=== PATIENT | female | born 1970 | race Caucasian/White ===

== ENCOUNTER 2023-06-18 06:59 | Inpatient (IN) ==
[2023-06-07 15:04] LABS: Basophils # (Auto) 0.05 K/mcL (0.00-0.30); Basophils % (Auto) 0.9 % (0.0-2.0); Eosinophils # (Auto) 0.16 K/mcL (0.00-0.70); Eosinophils % (Auto) 2.8 % (0.0-7.0); Hematocrit 42.3 % (34.1-44.9); Hemoglobin 13.6 g/dL (11.2-15.7); Lymphocytes # (Auto) 1.68 K/mcL (1.50-4.80); Lymphocytes % (Auto) 29.3 % (15.5-49.0); Mean Cell Volume 94.6 fL (80.0-100.0); Mean Corpuscular HGB Conc 32.2 g/dL (31.0-36.0); Mean Platelet Volume 9.1 fL (8.8-12.5); Neutrophils % (Auto) 59.8 % (38.0-78.0); Platelet Count 354 K/mcL (140-440); RBC 4.47 M/mcL (3.59-5.38); Red Cell Distribution Width 13.3 % (11.5-14.5); WBC 5.7 K/mcL (4.5-11.0)
[2023-06-07 15:29] LABS: ALT/SGPT 18 U/L (<40); AST/SGOT 26 U/L (<32); Albumin 4.3 gm/dL (3.2-5.2); Albumin/Globulin Ratio 1.3 (1.0-2.3); Alkaline Phosphatase 89 U/L (39-117); Bilirubin,Total 0.2 mg/dL (0.1-1.0); Blood Urea Nitrogen 12 mg/dL (6-20); Calcium 9.5 mg/dL (8.6-10.4); Carbon Dioxide 25 mmol/L (22-30); Chloride 103 mmol/L (96-108); Globulin 3.4 gm/dL (2.2-3.7); Glomerular Filtration Rate 83; Glucose 101 mg/dL (70-105)
[2023-06-07 17:06] LABS: INR 0.9 (0.9-1.1); Partial Thromboplastin Time 25.2 sec (20.0-37.0); Prothrombin Time 12.8 sec (11.9-14.5)
[~2023-06-18 06:59] MED LIST: 0.9 % SODIUM CHLORIDE 250 ML IV SCH
[2023-06-18] MEDS ORDERED: IPRATROPIUM/ALBUTEROL 3 ML AMPUL.NEB NEB PRN ×3 (07:00→14:19)
[2023-06-18] MEDS: SCOPOLAMINE 1 PATCH PATCH TOPICAL PRN (07:30)
[2023-06-18] MEDS ORDERED: ROCURONIUM 10 MG/ML ML IV ONE ×2 (10:05→14:22)
[2023-06-18] MEDS ORDERED: LIDOCAINE 2% PF 5 ML VIAL ONE (10:05)
[2023-06-18] MEDS ORDERED: PROPOFOL 200 MG/20 ML VIAL IV ONE ×2 (10:05→11:37)
[2023-06-18] MEDS: CIPROFLOXACIN 400 MG/200 ML BAG IV SCH ×2 (10:45→22:39)
[2023-06-18] MEDS ORDERED: fentaNYL 100 MCG/2 ML VIAL ONE ×3 (11:05→13:16)
[2023-06-18] MEDS ORDERED: MIDAZOLAM 2 MG/2 ML VIAL ONE (11:05)
[2023-06-18] MEDS: metroNIDAZOLE 500 MG/100 ML BAG IV SCH ×2 (11:15→17:07)
[2023-06-18] MEDS ORDERED: ePHEDrine 50 MG/5 ML SYRINGE (ANEST) IV ONE (11:37)
[2023-06-18] MEDS ORDERED: ONDANSETRON 4 MG/2 ML VIAL ONE (11:58)
[2023-06-18] MEDS ORDERED: DEXAMETHASONE 10 MG/ML VIAL ONE (11:58)
[2023-06-18] MEDS ORDERED: ONDANSETRON 4 MG/2 ML VIAL IV PRN ×2 (14:11→14:19)
[2023-06-18] MEDS ORDERED: fentaNYL 100 MCG/2 ML VIAL IV PRN ×2 (14:11→14:19)
[2023-06-18] MEDS ORDERED: SUGAMMADEX SODIUM 200 MG/2 ML VIAL IV ONE (14:13)
[2023-06-18] MEDS ORDERED: BENZOCAINE/MENTHOL 1 LOZENGE PO PRN (14:19)
[2023-06-18] MEDS ORDERED: LORazepam 2 MG/ML VIAL IV PRN (15:09)
[2023-06-18] MEDS: KETOROLAC 30 MG/ML VIAL IV PRN (15:32)
[2023-06-18] MEDS: fentaNYL 100 MCG/2 ML VIAL IV PRN (16:05)
[2023-06-18] MEDS: 0.9 % SODIUM CHLORIDE 250 ML IV SCH ×2 (16:53)
[2023-06-18] MEDS: METHOCARBAMOL 1,000 MG/10 ML VIAL IV SCH (17:07)
[2023-06-18] MEDS: METOCLOPRAMIDE 10 MG/2 ML VIAL IV SCH (17:07)
[2023-06-18] MEDS: ACETAMINOPHEN 1,000 MG/100 ML BAG IV SCH (20:33)
[2023-06-19] MEDS: 0.9 % SODIUM CHLORIDE 1,000 ML IV SCH (03:49)
[2023-06-19 06:08] LABS: Basophils # (Auto) 0.04 K/mcL (0.00-0.30); Basophils % (Auto) 0.4 % (0.0-2.0); Eosinophils # (Auto) 0.03 K/mcL (0.00-0.70); Eosinophils % (Auto) 0.3 % (0.0-7.0); Hemoglobin 12.4 g/dL (11.2-15.7); Lymphocytes # (Auto) 0.78 K/mcL (1.50-4.80); Lymphocytes % (Auto) 7.4 % (15.5-49.0); Mean Cell Volume 96.1 fL (80.0-100.0); Mean Corpuscular HGB Conc 31.8 g/dL (31.0-36.0); Mean Platelet Volume 9.2 fL (8.8-12.5); Monocytes # (Auto) 0.76 K/mcL (0.10-0.90); Monocytes % (Auto) 7.2 % (1.0-12.0); Neutrophils % (Auto) 84.6 % (38.0-78.0); Platelet Count 309 K/mcL (140-440); RBC 4.06 M/mcL (3.59-5.38); Red Cell Distribution Width 13.2 % (11.5-14.5); WBC 10.5 K/mcL (4.5-11.0)
[2023-06-19 06:25] LABS: ALT/SGPT 8 U/L (<40); AST/SGOT 21 U/L (<32); Albumin 3.3 gm/dL (3.2-5.2); Albumin/Globulin Ratio 1.2 (1.0-2.3); Alkaline Phosphatase 67 U/L (39-117); Bilirubin,Direct < 0.2 mg/dL (0-0.3); Bilirubin,Total 0.4 mg/dL (0.1-1.0); Blood Urea Nitrogen 15 mg/dL (6-20); Calcium 8.6 mg/dL (8.6-10.4); Carbon Dioxide 24 mmol/L (22-30); Chloride 103 mmol/L (96-108); Globulin 2.7 gm/dL (2.2-3.7); Glomerular Filtration Rate 72; Glucose 141 mg/dL (70-105); Lactate Dehydrogenase 173 U/L (135-225); Phosphorous 4.2 mg/dL (2.5-4.5); Triglycerides 68 mg/dL (<150); Uric Acid 6.8 mg/dL (2.5-8.0)
[2023-06-20 06:05] LABS: Basophils # (Auto) 0.02 K/mcL (0.00-0.30); Basophils % (Auto) 0.2 % (0.0-2.0); Eosinophils # (Auto) 0.34 K/mcL (0.00-0.70); Eosinophils % (Auto) 3.3 % (0.0-7.0); Hematocrit 35.4 % (34.1-44.9); Hemoglobin 11.3 g/dL (11.2-15.7); Lymphocytes % (Auto) 7.7 % (15.5-49.0); Mean Cell Volume 97.8 fL (80.0-100.0); Mean Corpuscular HGB Conc 31.9 g/dL (31.0-36.0); Mean Platelet Volume 9.1 fL (8.8-12.5); Monocytes # (Auto) 0.72 K/mcL (0.10-0.90); Monocytes % (Auto) 6.9 % (1.0-12.0); Neutrophils % (Auto) 81.7 % (38.0-78.0); Platelet Count 251 K/mcL (140-440); RBC 3.62 M/mcL (3.59-5.38); Red Cell Distribution Width 13.3 % (11.5-14.5); WBC 10.4 K/mcL (4.5-11.0)
[2023-06-20 06:24] LABS: ALT/SGPT 6 U/L (<40); AST/SGOT 15 U/L (<32); Albumin 3.1 gm/dL (3.2-5.2); Albumin/Globulin Ratio 1.1 (1.0-2.3); Alkaline Phosphatase 59 U/L (39-117); Bilirubin,Direct < 0.2 mg/dL (0-0.3); Bilirubin,Total 0.3 mg/dL (0.1-1.0); Blood Urea Nitrogen 9 mg/dL (6-20); Calcium 8.3 mg/dL (8.6-10.4); Carbon Dioxide 24 mmol/L (22-30); Chloride 108 mmol/L (96-108); Globulin 2.8 gm/dL (2.2-3.7); Glomerular Filtration Rate 102; Glucose 121 mg/dL (70-105); Lactate Dehydrogenase 152 U/L (135-225); Phosphorous 1.7 mg/dL (2.5-4.5); Triglycerides 49 mg/dL (<150); Uric Acid 5.3 mg/dL (2.5-8.0)
[2023-06-20] MEDS: ENOXAPARIN 40 MG/0.4 ML SYRINGE SQ SCH (09:02)
[2023-06-20] MEDS: ONDANSETRON 4 MG/2 ML VIAL IV PRN (13:32)
[2023-06-21 06:31] LABS: Basophils # (Auto) 0.05 K/mcL (0.00-0.30); Basophils % (Auto) 0.6 % (0.0-2.0); Eosinophils # (Auto) 0.45 K/mcL (0.00-0.70); Hematocrit 32.3 % (34.1-44.9); Hemoglobin 10.3 g/dL (11.2-15.7); Lymphocytes % (Auto) 11.2 % (15.5-49.0); Mean Corpuscular HGB Conc 31.9 g/dL (31.0-36.0); Mean Platelet Volume 9.3 fL (8.8-12.5); Monocytes # (Auto) 0.55 K/mcL (0.10-0.90); Monocytes % (Auto) 6.1 % (1.0-12.0); Neutrophils % (Auto) 76.9 % (38.0-78.0); Platelet Count 277 K/mcL (140-440); RBC 3.33 M/mcL (3.59-5.38); Red Cell Distribution Width 13.2 % (11.5-14.5)
[2023-06-21] MEDS: BENZOCAINE ONE 20% 1 SPRAY TOPICAL (10:00)
[2023-06-22 06:50] LABS: ALT/SGPT < 5 U/L (<40); AST/SGOT 15 U/L (<32); Albumin 3.1 gm/dL (3.2-5.2); Albumin/Globulin Ratio 1.1 (1.0-2.3); Alkaline Phosphatase 54 U/L (39-117); Bilirubin,Direct < 0.2 mg/dL (0-0.3); Bilirubin,Total 0.2 mg/dL (0.1-1.0); Blood Urea Nitrogen 7 mg/dL (6-20); Calcium 8.3 mg/dL (8.6-10.4); Carbon Dioxide 22 mmol/L (22-30); Chloride 106 mmol/L (96-108); Globulin 2.9 gm/dL (2.2-3.7); Glomerular Filtration Rate 109; Glucose 101 mg/dL (70-105); Lactate Dehydrogenase 165 U/L (135-225); Phosphorous 1.4 mg/dL (2.5-4.5); Triglycerides 61 mg/dL (<150); Uric Acid 4.3 mg/dL (2.5-8.0)
[2023-06-22 08:03] LABS: Basophils # (Auto) 0.03 K/mcL (0.00-0.30); Basophils % (Auto) 0.4 % (0.0-2.0); Eosinophils # (Auto) 0.55 K/mcL (0.00-0.70); Eosinophils % (Auto) 6.8 % (0.0-7.0); Hematocrit 34.5 % (34.1-44.9); Hemoglobin 10.9 g/dL (11.2-15.7); Lymphocytes # (Auto) 0.99 K/mcL (1.50-4.80); Lymphocytes % (Auto) 12.2 % (15.5-49.0); Mean Cell Volume 95.6 fL (80.0-100.0); Mean Corpuscular HGB Conc 31.6 g/dL (31.0-36.0); Mean Platelet Volume 10.5 fL (8.8-12.5); Monocytes # (Auto) 0.48 K/mcL (0.10-0.90); Monocytes % (Auto) 5.9 % (1.0-12.0); Neutrophils % (Auto) 74.1 % (38.0-78.0); Platelet Count 343 K/mcL (140-440); RBC 3.61 M/mcL (3.59-5.38); Red Cell Distribution Width 13.2 % (11.5-14.5); WBC 8.1 K/mcL (4.5-11.0)
[2023-06-22] MEDS: POTASSIUM PHOSPHATE 40 MEQ in DEXTROSE 5% IN WATER 500 ML IV SCH (14:59)
[2023-06-23 06:18] LABS: Basophils # (Auto) 0.02 K/mcL (0.00-0.30); Basophils % (Auto) 0.2 % (0.0-2.0); Eosinophils # (Auto) 0.45 K/mcL (0.00-0.70); Eosinophils % (Auto) 5.4 % (0.0-7.0); Hemoglobin 10.8 g/dL (11.2-15.7); Lymphocytes # (Auto) 1.22 K/mcL (1.50-4.80); Lymphocytes % (Auto) 14.5 % (15.5-49.0); Mean Cell Volume 94.3 fL (80.0-100.0); Mean Corpuscular HGB Conc 32.7 g/dL (31.0-36.0); Mean Platelet Volume 8.8 fL (8.8-12.5); Monocytes # (Auto) 0.58 K/mcL (0.10-0.90); Monocytes % (Auto) 6.9 % (1.0-12.0); Neutrophils % (Auto) 72.6 % (38.0-78.0); Platelet Count 351 K/mcL (140-440); WBC 8.4 K/mcL (4.5-11.0)
[2023-06-23 06:53] LABS: ALT/SGPT < 5 U/L (<40); AST/SGOT 13 U/L (<32); Albumin/Globulin Ratio 1.2 (1.0-2.3); Alkaline Phosphatase 53 U/L (39-117); Bilirubin,Direct < 0.2 mg/dL (0-0.3); Bilirubin,Total < 0.2 mg/dL (0.1-1.0); Blood Urea Nitrogen 4 mg/dL (6-20); Calcium 8.4 mg/dL (8.6-10.4); Carbon Dioxide 24 mmol/L (22-30); Chloride 104 mmol/L (96-108); Globulin 2.6 gm/dL (2.2-3.7); Glomerular Filtration Rate 109; Glucose 119 mg/dL (70-105); Lactate Dehydrogenase 159 U/L (135-225); Triglycerides 56 mg/dL (<150); Uric Acid 3.8 mg/dL (2.5-8.0)
[2023-06-23] MEDS: HYDROCORTISONE CRM 1% TUBE 30GM TOPICAL PRN (20:06)
[2023-06-23] MEDS: diphenhydrAMINE 50 MG/ML VIAL IV PRN (21:32)
== END 2023-06-24 17:36 | disposition home or self-care (01) | DRG 330 ==
LOC: MEDSUR 06:59 → EDSTATUS 08:30 → UNDODISIN 06-23 21:19
PROVIDERS: ADMIT Family Medicine Adult Medicine; ATTEND Family Medicine Adult Medicine